=== PATIENT | female | born 1945 | race Caucasian/White ===

== ENCOUNTER 2016-10-19 09:11 | Outpatient (CLI) | payer MEDICARE, OTHER | END 2016-10-19 09:12 | disposition home or self-care (01) | LOC: LAB 09:11 | DX: Z01.89 Encounter for other specified special examinations (principal) | CPT/HCPCS: 36415 ==

== ENCOUNTER 2016-12-09 13:05 | Outpatient (CLI) | payer MEDICARE, OTHER ==
--- NOTE | 2016-12-10 08:29 | Ultrasound Report ---
ABIs: 12/09/2016 CLINICAL INDICATION: Peripheral neuropathy. TECHNIQUE: Real-time sonographic vascular imaging was performed by the pattern changer through the extremities utilizing both color-flow and Doppler flow analysis. Multiple business services sales representative static images were saved for review. RIGHT SIDE SITE PSV WAVEFORM STEN TRACK WELDER 72 biphasic PER 57 biphasic LEFT SIDE SITE PSV WAVEFORM STEN TRACK WELDER 88 biphasic PER 74 biphasic TECHNIQUE: Real-time scanning was performed. SYSTOLIC PRESSURES RIGHT LEFT BRACHIAL ARTERY 127/68 129/66 POSTERIOR TIBIAL ARTERY 149/65 146/59 ANTERIOR TIBIAL ARTERY --- 162/65 PERONEAL ARTERY 162/65 167/63 ANKLE/ARM INDEX 1.17 1.13 FINDINGS: ABIs are normal, measuring 1.17 on the right and 1.13 on the left. IMPRESSION: NORMAL ABIs. MTDD
== END 2016-12-09 13:06 | disposition home or self-care (01) ==
LOC: DI 13:05
PROVIDERS: ATTEND Internal Medicine
DX: G62.9 Polyneuropathy, unspecified (principal)
CPT/HCPCS: 93922

== ENCOUNTER 2017-12-21 07:26 | Outpatient (CLI) | payer SELFPAY | END 2017-12-21 07:27 | disposition home or self-care (01) | LOC: LAB 07:26 | DX: Z01.89 Encounter for other specified special examinations (principal) ==

== ENCOUNTER 2017-12-29 07:30 | Outpatient (CLI) | payer MEDICARE, OTHER ==
--- NOTE | 2017-12-29 14:34 | Ultrasound Report ---
Procedure Date: 12/29/2017 Accession Number: [id number] / [id number] Procedure: US - Duplex Aorta Complete CPT Code: FULL RESULT: EXAM: AORTIC DOPPLER ULTRASOUND EXAM DATE: 12/29/2017 09:30 AM. CLINICAL HISTORY: Numbness and pain with walking. COMPARISON: None. TECHNIQUE: Real-time sonographic imaging of retroperitoneal vascular structures, including color-flow, Doppler flow and spectral analysis was performed by the cultured marble products maker. Multiple motor vehicle field representative static images were saved for review. FINDINGS: Aorta: The abdominal aorta was adequately imaged. No evidence for abdominal aortic aneurysm. Aorta proximal: Sagittal plane AP 2.1 cm. Aorta mid: Transverse: 1.8 x 1.9 cm. Aorta distal: Transverse: 1.3 x 1.5 cm. Caliber within normal limits: Yes. Plaque Visualized: Yes. Right iliac: Transverse: 0.95 x 0.96 cm. Left iliac: Transverse: 1.2 x 1.1 cm. Doppler: Prx Aorta PSV: 74 cm/sec. Mid Aorta PSV: 65 cm/sec. Dist Aorta PSV: 79 cm/sec. Proximal RCIA PSV: 113 cm/sec. Proximal LCIA PSV: 108 cm/sec. Iliac Vessels: The proximal common iliac arteries are normal in caliber. Other: None. IMPRESSION: No abdominal aortic aneurysm. RADIA
--- NOTE | 2017-12-29 14:34 | Ultrasound Report ---
Procedure Date: 12/29/2017 Accession Number: [id number] / [id number] Procedure: US - Duplex Lwr Ext Arterial Bilat CPT Code: FULL RESULT: EXAM: Bilateral Lower Extremity Arterial Doppler Ultrasound EXAM DATE: 12/29/2017 09:30 AM. CLINICAL HISTORY: Numbness and pain with walking. COMPARISON: None. TECHNIQUE: Real-time sonographic vascular imaging was performed by the rear load truck driver, utilizing color-flow, Doppler flow, and spectral analysis. Multiple marketing sales representative static images were saved for review. FINDINGS: Right Leg: PROFESSIONAL NURSE: PSV 101 cm/sec. Triphasic waveform. PSFA: PSV 86 cm/sec. Biphasic waveform. MSFA: PSV 73 cm/sec. Biphasic waveform. DSFA: PSV 56 cm/sec. Biphasic waveform. PFA: PSV 72 cm/sec. Triphasic waveform. POP: PSV 40 cm/sec. Biphasic waveform. PHIL: PSV 58 cm/sec. Biphasic waveform. SKIP LOAD DRIVER: PSV 57 cm/sec. Biphasic waveform. PER: PSV 37 cm/sec. Biphasic waveform. DPA: PSV 54 cm/sec. Biphasic waveform. Left Leg: PROFESSIONAL NURSE: PSV 69 cm/sec. Triphasic waveform. PSFA: PSV 71 cm/sec. Biphasic waveform. MSFA: PSV 80 cm/sec. Biphasic waveform. DSFA: PSV 68 cm/sec. Biphasic waveform. PFA: PSV 68 cm/sec. Triphasic waveform. POP: PSV 35 cm/sec. Biphasic waveform. PHIL: PSV 50 cm/sec. Biphasic waveform. SKIP LOAD DRIVER: PSV 65 cm/sec. Biphasic waveform. PER: PSV 46 cm/sec. Biphasic waveform. DPA: PSV 41 cm/sec. Biphasic waveform. IMPRESSION: No flow-limiting stenosis in either lower extremity arterial system. RADIA
== END 2017-12-29 07:31 | disposition home or self-care (01) ==
LOC: DI 07:30
PROVIDERS: ATTEND Internal Medicine
DX: G64 Other disorders of peripheral nervous system (principal); M79.605 Pain in left leg; M79.604 Pain in right leg
CPT/HCPCS: 93925; 93978

== ENCOUNTER 2019-02-21 21:50 | Outpatient (CLI) | payer MEDICARE, OTHER | END 2019-02-21 21:51 | disposition EMS.NT | LOC: EMS 21:50 | PROVIDERS: ATTEND Surgery | DX: Z03.89 Encounter for observation for other suspected diseases and conditions ruled out (principal) ==

== ENCOUNTER 2019-05-08 13:32 | Outpatient (CLI) | payer MEDICARE, OTHER ==
--- NOTE | 2019-05-09 09:43 | Mammography Report ---
Reason: ROUTINE MAMMO Procedure Date: 05/08/2019 Accession Number: [id number] / [id number] Procedure: MGS - Screening Mammo Dig Bilat CPT Code: Final Report FULL RESULT: EXAM: Screening Mammo Dig Bilat DATE: 05/08/2019 2:04 PM CLINICAL HISTORY: Screening encounter. New baseline examination. TECHNIQUE: (B) - Bilateral CC, laterally exaggerated CC, MLO views were obtained. COMPARISON: None PARENCHYMAL PATTERN: (A) - The breast(s) demonstrate(s) scattered fibroglandular densities. FINDINGS: There are coarse typically benign calcifications as well as typically benign vascular calcifications. There are no suspicious masses, calcifications, or areas of distortion. IMPRESSION: Benign findings. BI-RADS category 2. RECOMMENDATION: (ANNUAL) - Recommend routine annual screening mammography. BI-RADS CATEGORY: (2) - Benign Findings. STANDARD QUALIFYING STATEMENTS: 1. This examination was reviewed with the aid of Computer-Aided Detection (CAD). 2. A negative or benign imaging report should not preclude biopsy if clinically suspicious findings are present. 3. Dense breasts may obscure an underlying neoplasm. 4. This examination was reviewed without the aid of 3D breast imaging (tomosynthesis).
== END 2019-05-08 13:33 | disposition home or self-care (01) ==
LOC: DI.S 13:32
PROVIDERS: ATTEND Nurse Practitioner Family
DX: Z12.31 Encounter for screening mammogram for malignant neoplasm of breast (principal)
CPT/HCPCS: 77067

== ENCOUNTER 2020-03-19 14:04 | Outpatient (CLI) | payer MEDICARE, OTHER ==
--- NOTE | 2020-03-19 15:44 | XRAY Report ---
PROCEDURE: Hips 2V BILAT INDICATIONS: BILATERAL HIP JOINT PAIN TECHNIQUE: 4 views of the hips bilaterally were acquired. COMPARISON: None FINDINGS: Bones: No fractures or dislocations but there is moderate joint space narrowing that is slightly gre ater on the right than the left involving each hip.. No suspicious bony lesions. The visualized pel viktor ring appears intact. Soft tissues: No suspicious soft tissue calcifications or masses. 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 Reviewed by: Luiz Mcgee MD on 03/19/2020 3:43 PM PST Approved by: Luiz Mcgee MD on 03/19/2020 3:43 PM PST Station ID: [id number]
== END 2020-03-19 14:05 | disposition home or self-care (01) ==
LOC: DI.S 14:04
PROVIDERS: ATTEND Registered Nurse
DX: M16.0 Bilateral primary osteoarthritis of hip (principal)
CPT/HCPCS: 73521

== ENCOUNTER 2020-11-19 07:26 | Outpatient (CLI) | payer MEDICARE, OTHER | END 2020-11-19 07:27 | disposition home or self-care (01) | LOC: LAB.S 07:26 | PROVIDERS: ATTEND Family Medicine | DX: Z01.89 Encounter for other specified special examinations (principal); E61.9 Deficiency of nutrient element, unspecified; E63.9 Nutritional deficiency, unspecified; L30.9 Dermatitis, unspecified | CPT/HCPCS: 36415 ==

== ENCOUNTER 2021-04-02 07:14 | Outpatient (CLI) | payer MEDICARE, OTHER ==
[2021-04-02 15:17] LABS: BASOPHILS % (AUTO) 0.7 %; EOSINOPHILS # (AUTO) 0.1 10^3/uL (0.0-0.7); HCT - HEMATOCRIT 42.2 % (37.0-47.0); LYMPHOCYTES # (AUTO) 1.2 10^3/uL (1.5-3.5); LYMPHOCYTES % (AUTO) 37.8 %; MEAN CORPUSCULAR HGB CONC 33.2 g/dL (32.0-36.0); MEAN CORPUSCULAR VOLUME 93.6 fL (81.0-99.0); MONOCYTES # (AUTO) 0.3 10^3/uL (0.0-1.0); MONOCYTES % (AUTO) 10.7 %; NEUTROPHILS # (AUTO) 1.5 10^3/uL (1.5-6.6); NEUTROPHILS % (AUTO) 48.8 %; PLT - PLATELET COUNT 209 10^3/uL (130-450); RED BLOOD COUNT 4.51 10^6/uL (4.20-5.40); RED CELL DISTRIBUTION WIDTH 12.3 % (12.0-15.0); WHITE BLOOD COUNT 3.1 x10^3/uL (4.8-10.8)
[2021-04-02 15:44] LABS: ALBUMIN 3.6 g/dL (3.2-5.5); ALBUMIN/GLOBULIN RATIO 1.3 (1.0-2.2); ALKALINE PHOSPHATASE 66 IU/L (42-121); ALT ALANINE AMINOTRANSFERASE 14 IU/L (10-60); AST ASPARTATE AMINOTRANSFERASE 17 IU/L (10-42); BILIRUBIN,TOTAL 0.8 mg/dL (0.2-1.0); BUN - BLOOD UREA NITROGEN 11 mg/dL (6-20); CALCIUM 9.1 mg/dL (8.5-10.3); CARBON DIOXIDE - CO2 25 mmol/L (21-32); CHLORIDE 103 mmol/L (101-111); CHOL/HDL RATIO 3.1 (<4.4); CHOLESTEROL 264 mg/dL; CREATININE 0.5 mg/dL (0.4-1.0); GFR - MDRD 120 (>89); GLUCOSE 90 mg/dL (70-100); HDL CHOLESTEROL 84 mg/dL; LDL CHOLESTEROL,CALCULATED 164 mg/dL; SODIUM 136 mmol/L (135-145); TOTAL PROTEIN 6.3 g/dL (6.7-8.2); TRIGLYCERIDES 82 mg/dL; VLDL CHOLESTEROL 16 mg/dL
[2021-04-02 15:51] LABS: CRP - C-REACTIVE PROTEIN < 1.0 mg/dL (0-1.0)
[2021-04-02 20:05] LABS: ESTIMATED AVERAGE GLUCOSE 120 mg/dL (70-100); HEMOGLOBIN A1c% 5.8 % (4.27-6.07)
[2021-04-03 12:01] LABS: HOMOCYSTEINE 6.5 umol/L (<10.4)
[2021-04-11 20:25] LABS: HDL LARGE 17618 nmol/L (>6729); LDL MEDIUM 467 nmol/L (<215); LDL PARTICLE NUMBER 2740 nmol/L (<1138); LDL PATTERN A Pattern (A); LDL PEAK SIZE 225.5 Angstrom (>222.9); LDL SMALL 255 nmol/L (<142)
== END 2021-04-02 07:15 | disposition home or self-care (01) ==
LOC: LAB.S 07:14
PROVIDERS: ATTEND Nurse Practitioner Family
DX: R73.03 Prediabetes (principal); R53.83 Other fatigue; E78.2 Mixed hyperlipidemia; M81.0 Age-related osteoporosis without current pathological fracture; G62.9 Polyneuropathy, unspecified; E72.11 Homocystinuria
CPT/HCPCS: 36415; 80053; 80061; 81599; 82306; 83036; 83090; 83525; 83704; 83721; 84681; 85025; 86140

== ENCOUNTER 2021-05-14 11:54 | Outpatient (CLI) | payer MEDICARE, OTHER ==
[2021-05-17 20:45] LABS: MYCOPLASMA PNEUMONIAE IGG 2.56; MYCOPLASMA PNEUMONIAE IGM 108 U/mL
[2021-05-19 21:52] LABS: EBV VIRAL CAPSID AB VCA IGG >750.00 U/mL; EBV VIRAL CAPSID AB VCA IGM <36.00 U/mL
== END 2021-05-14 11:55 | disposition home or self-care (01) ==
LOC: LAB.S 11:54
PROVIDERS: ATTEND Nurse Practitioner Family
DX: G43.109 Migraine with aura, not intractable, without status migrainosus (principal); G31.84 Mild cognitive impairment of uncertain or unknown etiology; G62.9 Polyneuropathy, unspecified; H93.13 Tinnitus, bilateral; L90.0 Lichen sclerosus et atrophicus; R53.83 Other fatigue
CPT/HCPCS: 36415; 81599; 86631; 86632; 86644; 86645; 86665; 86738; 86790; 87497

== ENCOUNTER 2021-06-06 16:11 | Outpatient (CLI) | payer MEDICARE, OTHER | END 2021-06-06 16:12 | disposition home or self-care (01) | LOC: LAB.S 16:11 | PROVIDERS: ATTEND Nurse Practitioner Family | DX: G43.109 Migraine with aura, not intractable, without status migrainosus (principal); G31.84 Mild cognitive impairment of uncertain or unknown etiology; G62.9 Polyneuropathy, unspecified; H93.13 Tinnitus, bilateral; L90.0 Lichen sclerosus et atrophicus; R53.83 Other fatigue | CPT/HCPCS: 81599; 86663; 86665 ==

== ENCOUNTER 2021-06-30 12:52 | Outpatient (CLI) | payer MEDICARE, OTHER ==
--- NOTE | 2021-06-30 13:59 | DEXA Report ---
PROCEDURE: Dexa Spine and/or Hip INDICATIONS: OSTEOPOROSIS TECHNIQUE: Dual energy x-ray absorptiometry (DXA) was performed on a [employer] System. Regions measur ed are the AP Spine, femoral neck, and if needed forearm. COMPARISON: December 20, 2012. FINDINGS: Lumbar Spine: Bone Mineral Density 0.772 g/cm/cm,T score -3.4, osteoporosis Left Femoral Neck: Bone Mineral Density 0.830 g/cm/cm, T score -1.5, osteopenia Total: Bone Mineral Density 0.7380 g/cm/cm, T score -2.2, osteopenia. (T score greater or equal to -1.0: NORMAL) (T score from -1.1 to -2.4: OSTEOPENIA) (T score less than or equal to -2.5 to: OSTEOPOROSIS) Impression: Bone mineral density as detailed above. Patients with diagnosis of osteoporosis or osteopenia should have regular bone mineral density assess ment. For those eligible for Medicare, routine testing is allowed once every 2 years. Testing frequ ency can be increased for patients who have rapidly progressing disease or for those who are receivin g medical therapy to restore bone mass. Reviewed by: Carl Viveros MD on 06/30/2021 1:57 PM PST Approved by: Carl Viveros MD on 06/30/2021 1:57 PM PST Station ID: [id number]
== END 2021-06-30 12:53 | disposition home or self-care (01) ==
LOC: DI 12:52
PROVIDERS: ATTEND Registered Nurse
DX: M81.0 Age-related osteoporosis without current pathological fracture (principal)

== ENCOUNTER 2021-07-09 12:55 | Outpatient (CLI) | payer MEDICARE, OTHER ==
[2021-07-09 15:38] LABS: URIC ACID 2.8 mg/dL (2.6-7.2)
[2021-07-09 20:35] LABS: ESTIMATED AVERAGE GLUCOSE 111 mg/dL (70-100); HEMOGLOBIN A1c% 5.5 % (4.27-6.07)
== END 2021-07-09 12:56 | disposition home or self-care (01) ==
LOC: LAB.S 12:55
PROVIDERS: ATTEND Nurse Practitioner Family
DX: R73.03 Prediabetes (principal); R53.83 Other fatigue
CPT/HCPCS: 36415; 83036; 83540; 84466; 84550

== ENCOUNTER 2021-08-21 09:45 | Outpatient (CLI) | payer SELFPAY | END 2021-08-21 23:59 | disposition home or self-care (01) | LOC: LAB.S 09:45 → EDSTATUS 10:47 → LAB.S 23:59 | PROVIDERS: ATTEND Nurse Practitioner Family | DX: Z01.89 Encounter for other specified special examinations (principal) | CPT/HCPCS: 36415 ==

== ENCOUNTER 2021-11-03 11:01 | Outpatient (CLI) | payer MEDICARE, OTHER ==
[2021-11-03 12:41] VITALS: BP 111/77
--- NOTE | 2021-11-03 12:41 | SLEEP CARE CONSULTATION ---
Information from patient questionnaire entered by Babak Cottrell MA. I have reviewed and concur with the information entered by Babak Cottrell MA. This document represents the service I personally performed and the decisions made by me, Paul Irene MD, [facility]. History of Present Illness Service Date and Time: 11/03/2021 1101 Reason for Visit: New patient (ONSET 05/2018, ON CPAP -) Chief Complaint: reports: Fatigue Date of Onset: 5-10 YEARS Usual bedtime: 9-930 PM Time it takes to fall asleep: 5-10 MINUTES Observed to quit breathing while asleep: No Sleeps alone due to snoring: No Number of times waking at night: 2-3 Reasons for waking at night: reports: Choking, Gasping for air, Pain, Bathroom Toss, Turn, or Twitch while sleeping: Yes Recalls having dreams: Yes Usually gets out of bed at: 0185-9239 Morning headache: No Sleepy or fatigued during the day: Yes Ever fallen asleep while driving: No Dreams during day naps: No Prior sleep studies: Yes Additional HPI information: I have the pleasure of seeing Ms. Worley today regarding the possibility of her having obstructive sleep apnea. As you know, she is a 75-year-old lady who had a home sleep apnea test (FABRICE) in [place] 5 years ago. The RDI was 11 and sharad oxygen saturation, 76%. She was first offered the oral appliance therapy, but it did not help. She then switched to a CPAP. She found CPAP to be difficult to use. She tried both a full face mask and nasal mask. She still has the device. She said there was one night that she slept all night with it and felt good the next day. The patient tells me that she normally goes to bed around 9 9:30 pm, and it takes her approximately 5 - 10 minutes to fall asleep. She has not been told that she snores loudly or irregularly at night. She has never been observed to stop breathing in her sleep. Her sleeps in a separate room because he snores. She can recall waking up on the average of 2 - 3 times during the night. Most of the time she wakes up because of having to use the bathroom. She has awakened occasionally because of her own snoring, choking, and having to gasp for air. There is a lot of tossing and turning in her sleep. Generally, she can recall having dreams. In the morning she usually gets up out of the bed around 5 - 6 a.m. not feeling refreshed nor rested. She usually does not have a morning headache. During the day she complains of feeling sleepy and fatigued. Her score on [place] Sleepiness Scale is out of 24. She never has fallen asleep while driving nor has had any accident due to sleepiness. She usually takes a nap during the day. She reports having impaired concentration during the day. Subjective Initial [place] Sleepiness Scale score: 4 (11/03/2021) Social History The patient's occupation is a RE. Patient is and lives in [place]. Have you smoked in the past 12 months: Yes Cigarettes per day (20/pack): 20 Years of smokin Quit date: 1978 Smoking Pack Years: 10.0 Alcohol use: No Caffeine use: Yes Caffeine amount and frequency: 2 X DAILY Family History Family history of sleep disordered breathing: Yes Family Hx Sleep Apnea: Father: Snoring, Sleep apnea - Untreated, Sibling: Snoring, Sleep apnea - Treated, Grandparent: Snoring, Sleep apnea - Untreated Allergies and Home Medications Known drug allergies: No Drug allergies reviewed: Yes Home medication list reviewed: Yes Allergy and home medication list: Allergies No Known Drug Allergies Allergy (Verified 12/24/12 21:30) Review of Systems Cardiovascular: reports: irregular heart rate or pulse Gastrointestinal: denies: heartburn, difficulty swallowing, nausea, vomitting, diarrhea, abdominal pain, other Urinary: denies: incontinence, frequency, urgency, impotence, other Neurological: denies: headaches, seizure, head trauma, disorientation, speech dysfunction, gait or balance problems, fainting or unconsciousness, other Psychiatric: denies: Attention Deficit Hyperactivity, anxiety, depression, mood disorder, claustrophobia, other Ear/Nose/Throat: denies: nasal congestion, sinus problems, nose bleeds, dry mouth/throat, hoarseness, injury to nose, tonsillectomy, wisdom teeth removed, other Endocrine: denies: thyroid disease, history of goiter, sluggishness, too hot or cold, excessive thirst, increased appetite, increased urination, unexplained weakness, other Physical Exam Vital signs obtained and entered by: Manuel COTTRELL CMA AAND Blood Pressure: 111/77 (PULSE 62, RESP 16, RIGHT) Cuff size: wrist Heart Rate: 62 O2 Saturation: 97 (N95) Height: 5 ft 3 in Weight: 131 lb Body Mass Index: 23.2 BMI Classification: Healthy weight Neck circumference: 11 (INCHES) Mood/affect: normal HEENT: No craniofacial malformation Nostrils: patent to airflow Turbinates: normal Septum: midline Mouth and throat: normal Soft palate: normal Hard palate: normal Uvula: normal Uvula visualization: 100% Mallampati Class I Tongue: normal in size Tonsils: small Chin and jaw: normal size and position Neck: normal w/o lymphadenopathy or thyromegaly Heart: regular rate and rhythm Lungs: clear bilaterally Extremities: no edema or clubbing Neurologic: intact Impression and Plan IMPRESSION: 1. Obstructive Sleep Apnea-Hypopnea Syndrome, mild, as previously diagnosed. The patient could not tolerate the oral appliance and CPAP therapy. The only symptom she has is nocturnal choking. However, she does have history of supraventricular tachycardia. Therefore, an accurate diagnosis is necessary. I explained to her that when sleep disrupting conditions is mild, home sleep apnea test (HSAT) is not the appropriate test. She agreed to have an in- laboratory polysomnography. Plan: 1. Schedule an in-laboratory polysomnography. 2. Return for follow up after the sleep study. Follow up with Sleep Care in: 1-2 months Time Spent with Patient (minutes): 15
== END 2021-11-03 11:02 | disposition home or self-care (01) ==
LOC: SC 11:01
PROVIDERS: ATTEND Internal Medicine Pulmonary Disease
DX: G47.33 Obstructive sleep apnea (adult) (pediatric) (principal); Z87.891 Personal history of nicotine dependence
CPT/HCPCS: 99202; G0463; 99212

== ENCOUNTER 2021-12-08 10:55 | Outpatient (CLI) | payer MEDICARE, OTHER ==
--- NOTE | 2021-12-08 10:43 | SLEEP CARE CONSULTATION ---
Information from patient questionnaire entered by Babak Cottrell MA. I have reviewed and concur with the information entered by Babak Cottrell MA. This document represents the service I personally performed and the decisions made by me, Paul Irene MD, [facility]. History of Present Illness Service Date and Time: 12/08/2021 1020 Additional HPI information: Ms. Worley returned for follow up of the sleep study she had on 11/13/2021. The polysomnography showed that the patient had reduced sleep efficiency due to a prolonged awakening in the middle of the night and broommaking supervisor awakening. The sleep architecture was otherwise relatively normal considering the first-night effect. Respiratory monitoring showed no significant sleep disordered breathing (AHI = 1.5). There was mild hypoxia (sharad oxygen saturation of 83% with 10 minutes of sleep spent with oxygen saturation at or below 88%). The few respiratory events occurred almost exclusively during supine sleep (supine AHI = 11.7; non-supine = 0.21). No audible snore. There was no significant periodic leg movement of sleep. Cardiac rhythm was normal sinus rhythm without significant arrhythmia. No abnormal behavior (parasomnia) observed during the night. Sleep Study - Results Type of Sleep Study: Polysomnography (F/U POLY, 11/13/2021 [facility], [place] SS 11/24/2016,) Allergies and Home Medications Drug allergies reviewed: Yes Home medication list reviewed: Yes Allergy and home medication list: Allergies No Known Drug Allergies Allergy (Verified 12/24/12 21:30) Review of Systems Review of systems same as previous: Yes Physical Exam Vital signs obtained and entered by: Manuel COTTRELL CMA AAFL, PRE TELEMED APPT Height: 5 ft 3 in Impression and Plan IMPRESSION: 1. Nocturnal hypoxemia, mild, possibly due to emphysema given her history of cigarette smoking. She is currently not smoking. Her oxygen saturation is not low enough to require oxygen therapy. She normally sleeps on her side at home and, therefore, does not have to worry about the few respiratory events that occurred during supine sleep. PLAN: 1. Continue to avoid sleeping supine. 2. Return for follow up on as needed basis. Visit Type: Telehealth Video ([phone]) Video Type: Doximity Patient Location: Home Location of Provider: Office Patient agrees and consents to this telehealth visit type: Yes Patient agrees to have their insurance billed: Yes Time Spent with Patient (minutes): 10 Provider Statement: I spent 100% of the Telehealth Video Call with the patient with greater than 50% spent counseling the patient and coordination of care.
== END 2021-12-08 10:56 | disposition home or self-care (01) ==
LOC: SC 10:55
PROVIDERS: ATTEND Internal Medicine Pulmonary Disease
DX: R09.02 Hypoxemia (principal); Z87.891 Personal history of nicotine dependence

== ENCOUNTER 2022-09-22 10:53 | Outpatient (CLI) | payer MEDICARE, OTHER ==
--- NOTE | 2022-09-23 10:39 | Mammography Report ---
BILATERAL DIGITAL SCREENING MAMMOGRAM 3D/2D: 09/22/2022 CLINICAL: Routine screening. Family history of breast cancer. Comparison is made to exam dated: 05/08/2019 mammogram - [facility]. Both breasts are almost entirely fatty (category a/<25% glandular tissue). No significant masses, calcifications, or other findings are seen in either breast. There has been no significant interval change. IMPRESSION: NEGATIVE There is no mammographic evidence of malignancy. A 1 year screening mammogram is recommended. Based on the Tyrer Cuzick model (a risk assessment model) the patients lifetime risk is 1.2% and her 10 year risk is 0.0%. According to the ACR, ACS, and NCCN guidelines, an annual breast MRI exam colin g with mammogram is recommended if the patients lifetime risk is 20% or greater. This exam was interpreted at Station ID: [id number]. NOTE: For mammograms, a report in lay terms will be sent to the patient. Approximately 15% of breast malignancies will not be visualized mammographically. In the management of a palpable breast mass, a negative mammogram must not discourage biopsy of a clinically suspicious lesion. Electronically Signed By: Nicolás cary/benito:09/22/2022 15:17:07 letter sent: No_Letter ACR BI-RADS Category 1: Negative 3341F PARENCHYMAL PATTERN: (F) - The breast(s) demonstrate(s) diffuse fatty replacement. BI-RADS CATEGORY: (1) - 1 Mammogram [id number] 1 year screening LATERALITY: (B)
== END 2022-09-22 10:54 | disposition home or self-care (01) ==
LOC: DI.S 10:53
PROVIDERS: ATTEND Registered Nurse
DX: Z12.31 Encounter for screening mammogram for malignant neoplasm of breast (principal); Z80.3 Family history of malignant neoplasm of breast

== ENCOUNTER 2022-10-29 11:07 | Outpatient (CLI) | payer MEDICARE, OTHER ==
[2022-10-29 12:40] VITALS: BP 110/66
--- NOTE | 2022-10-29 12:40 | SLEEP CARE CONSULTATION ---
Information from patient questionnaire entered by Tavia Kendrick. I have reviewed and concur with the information entered by Tavia Kendrick. This document represents the service I personally performed and the decisions made by me, Eri Hicks ARNP. History of Present Illness Service Date and Time: 10/29/2022 1107 Reason for follow up: other (10 MONTH F/U PT SYMTOMS ARE WORSE) Type of Sleep Study: Polysomnography (F/U POLY, 11/13/2021 [facility], [place] SS 11/24/2016,) HPI additional information: I had the pleasure of seeing ELVIS GARCIA today regarding the possibility of her having a sleep disorder. She was last seen here in the office for follow-up of a sleep study done on 11/13/2021. She had no significant sleep disordered breathing with an average AHI of 1.5, sharad oxygen saturation of 83% and an elevated supine AHI of 11.7. Her current complaints are frequent night awakenings, excessive daytime sleepiness and unrefreshed sleep. The patient tells me that she normally goes to bed around 9 pm, and it takes her approximately few minutes to fall asleep. She has not been told that she snores loudly and irregularly at night. She has been observed to stop breathing in her sleep according to her [place]a ring. She does not sleep with anyone in same bed. She can recall waking up on the average of 3 times during the night. Most of the time she wakes up because she needs to turn over to side or the bathroom. She has occasionally awakened having to gasp for air. There is a lot of tossing and turning in her sleep. Generally she can recall having dreams. She usually wakes up at 05-0530 AM and does not feel refreshed. She usually does have a morning headache but this is not often. During the day she complains of feeling sleepy and fatigued. She has never fallen asleep while driving nor has any accident due to sleepiness. She has felt sleepy while driving and will take nap in car as needed. She usually naps for about 20-30 minutes during the day as needed. If she naps, upon falling asleep during the day she denies having vivid dreams. She reports having impaired concentration during the day. There is no somniloquy (sleep talking) or somnambulism (sleep walking). She has never experienced sleep paralysis, cataplexy or restless legs symptoms. She does have peripheral neuropathy in her legs that causes her to experience pain that is interrupting her sleep and daytime activities. Sleep Study - Results Type of Sleep Study: Polysomnography (F/U POLY, 11/13/2021 [facility], [facility] SS 11/24/2016,) Subjective Current [place] Sleepiness Scale score: 7 (10/29/22) Allergies and Home Medications Known drug allergies: No Drug allergies reviewed: Yes Home medication list reviewed: Yes (no changes) Allergy and home medication list: Allergies No Known Drug Allergies Allergy (Verified 10/28/22 16:21) Review of Systems Review of systems same as previous: Yes (peripheral neuropathy feet and legs) Physical Exam Vital signs obtained and entered by: TAVIA Tejada MA Blood Pressure: 110/66 (LEFT ARM) Cuff size: regular Heart Rate: 69 O2 Saturation: 99 Height: 5 ft 3 in Weight: 143 lb 3.2 oz Weight change since last visit: 12 lbs gain Body Mass Index: 25.3 BMI Classification: Overweight Impression and Plan 1. Suspected Obstructive Sleep Apnea-Hypopnea Syndrome, as previously diagnosed in the past and as suggested by a history of gasping or choking in sleep, frequent awakening during the night, unrefreshed sleep, and excessive daytime sleepiness. Patient has gained about 17 pounds back since her last sleep study and November of last year. She feels as if her daytime fatigue and sleepiness symptoms are worse. She is experiencing peripheral neuropathy pain that does interrupt the quality of her sleep. Patient is aware we may not be able to get another study since her last 1 showed positional mild apnea only when she was on her back. I discussed with her sleeping nonsupine, which she does normally, will control her mild positional apneas. She is still concerned that she may have worsened since that time and we will go forward to see if we can get another test to confirm the diagnosis and to assess severity. The pathophysiology of obstructive sleep apnea-hypopnea syndrome was discussed with the patient and health risks of cardiovascular and cerebrovascular disease if not treated. Risks of drowsy driving discussed in detail and patient advised to avoid long distance driving and to test puller at the first sign of drowsiness. Patient agreed to plan. * Schedule polysomnography +- manual CPAP titration study and return in 1-2 weeks after the study to discuss result and initiate therapy. * Avoid long distance driving or driving when feeling sleepy. * Avoid alcohol, sedative and muscle relaxant around bedtime. * Attempt to lose weight. * Review instructions provided by trained office staff on how to prepare for the sleep study. * Return for follow-up after sleep study completed. Counseling Topics: Sleeping position, Weight loss health impact Visit Type: In Office Time Spent with Patient (minutes): 45 Provider Statement: I spent 100% of the Face to Face Visit with the patient with greater than 50% spent counseling the patient and coordination of care.
== END 2022-10-29 11:08 | disposition home or self-care (01) ==
LOC: SC 11:07
PROVIDERS: ATTEND Nurse Practitioner Family
DX: G47.10 Hypersomnia, unspecified (principal); G47.8 Other sleep disorders; E66.3 Overweight; Z68.25 Body mass index [BMI] 25.0-25.9, adult
CPT/HCPCS: 99215; G0463; 99212

== ENCOUNTER 2023-03-08 07:13 | Outpatient (CLI) | payer MEDICARE, OTHER | END 2023-03-08 07:14 | disposition home or self-care (01) | LOC: LAB.S 07:13 | PROVIDERS: ATTEND Nurse Practitioner Family | DX: Z01.89 Encounter for other specified special examinations (principal) | CPT/HCPCS: 36415 ==

== ENCOUNTER 2023-03-30 07:07 | Outpatient (CLI) | payer MEDICARE, OTHER ==
[2023-03-30 15:50] LABS: BASOPHILS % (AUTO) 0.7 %; EOSINOPHILS # (AUTO) 0.1 10^3/uL (0.0-0.7); EOSINOPHILS % (AUTO) 2.6 %; HCT - HEMATOCRIT 46.1 % (37.0-47.0); HGB - HEMOGLOBIN 14.7 g/dL (12.0-16.0); LYMPHOCYTES # (AUTO) 1.6 10^3/uL (1.5-3.5); LYMPHOCYTES % (AUTO) 36.9 %; MEAN CORPUSCULAR HEMOGLOBIN 30.8 pg (27.0-31.0); MEAN CORPUSCULAR HGB CONC 31.9 g/dL (32.0-36.0); MEAN CORPUSCULAR VOLUME 96.4 fL (81.0-99.0); MONOCYTES # (AUTO) 0.5 10^3/uL (0.0-1.0); MONOCYTES % (AUTO) 11.7 %; NEUTROPHILS % (AUTO) 47.9 %; PLT - PLATELET COUNT 240 10^3/uL (130-450); RED BLOOD COUNT 4.78 10^6/uL (4.20-5.40); WHITE BLOOD COUNT 4.2 x10^3/uL (4.8-10.8)
[2023-03-30 16:09] LABS: ALBUMIN 4.3 g/dL (3.2-5.5); ALBUMIN/GLOBULIN RATIO 1.9 (1.0-2.2); ALKALINE PHOSPHATASE 95 IU/L (42-121); ALT ALANINE AMINOTRANSFERASE 18 IU/L (10-60); AST ASPARTATE AMINOTRANSFERASE 22 IU/L (10-42); BILIRUBIN,TOTAL 0.5 mg/dL (0.2-1.0); BUN - BLOOD UREA NITROGEN 15 mg/dL (6-20); CALCIUM 9.8 mg/dL (8.5-10.3); CARBON DIOXIDE - CO2 28 mmol/L (21-32); CHLORIDE 102 mmol/L (101-111); CHOL/HDL RATIO 2.9 (<4.4); CHOLESTEROL 318 mg/dL; CREATININE 0.6 mg/dL (0.6-1.3); CRP HIGH SENSITIVITY 0.49 mg/L; GFR - MDRD 96 (>89); GLUCOSE 88 mg/dL (74-104); HDL CHOLESTEROL 108 mg/dL; LDL CHOLESTEROL,CALCULATED 190 mg/dL; LDL/HDL RATIO 1.8 (<4.4); POTASSIUM 4.2 mmol/L (3.5-4.5); SODIUM 137 mmol/L (135-145); TOTAL PROTEIN 6.6 g/dL (6.4-8.9); TRIGLYCERIDES 98 mg/dL (48-352); VLDL CHOLESTEROL 20 mg/dL
[2023-03-30 21:04] LABS: ESTIMATED AVERAGE GLUCOSE 114 mg/dL (70-100); HEMOGLOBIN A1c% 5.6 % (4.27-6.07)
[2023-03-31 04:09] LABS: VITAMIN D 25-HYDROXY 49.6 ng/mL (30.0-100.0)
[2023-03-31 07:10] LABS: C-PEPTIDE SERUM 1.6 ng/mL (1.1-4.4); INSULIN 5.6 uIU/mL (2.6-24.9)
[2023-04-02 18:07] LABS: HDL-P (TOTAL) 41.7 umol/L (>=30.5); LDL SIZE 21.2 nm (>20.5); LDL-P 1914 nmol/L (<1000); LP-INSULIN RESISTANCE SCORE <25 (<=45); SMALL LDL-P <90 nmol/L (<=527)
== END 2023-03-30 07:08 | disposition home or self-care (01) ==
LOC: LAB.S 07:07
PROVIDERS: ATTEND Nurse Practitioner Family
DX: M81.0 Age-related osteoporosis without current pathological fracture (principal); K90.9 Intestinal malabsorption, unspecified; R73.03 Prediabetes; R53.83 Other fatigue; E78.2 Mixed hyperlipidemia; G62.9 Polyneuropathy, unspecified; E72.11 Homocystinuria
CPT/HCPCS: 36415; 80053; 80061; 82306; 82330; 83036; 83090; 83525; 83704; 83721; 84681; 85025; 86141

== ENCOUNTER 2023-04-07 13:26 | Outpatient (CLI) | payer MEDICARE, OTHER | END 2023-04-07 13:27 | disposition home or self-care (01) | LOC: LAB.S 13:26 | PROVIDERS: ATTEND Nurse Practitioner Family | DX: E78.2 Mixed hyperlipidemia (principal) | CPT/HCPCS: 81599; 85385 ==

== ENCOUNTER 2023-10-26 07:03 | Outpatient (CLI) | payer MEDICARE, OTHER | END 2023-10-26 07:04 | disposition home or self-care (01) | LOC: LAB.S 07:03 | PROVIDERS: ATTEND Nurse Practitioner Family | DX: E53.8 Deficiency of other specified B group vitamins (principal); G62.89 Other specified polyneuropathies; B37.82 Candidal enteritis; K90.9 Intestinal malabsorption, unspecified; R53.83 Other fatigue | CPT/HCPCS: 36415 ==

== ENCOUNTER 2023-12-08 07:02 | Outpatient (CLI) | payer MEDICARE, OTHER | END 2023-12-08 07:03 | disposition home or self-care (01) | LOC: LAB.S 07:02 | PROVIDERS: ATTEND Nurse Practitioner Family | DX: Z01.89 Encounter for other specified special examinations (principal) ==